=== PATIENT | female | born 1935 | race Caucasian/White ===

== ENCOUNTER 2016-09-14 15:47 | Outpatient (CLI) | payer MEDICARE ==
[2016-09-14 16:48] LABS: #Eosinphils 0.1 thou/uL (0.0-0.7); #Monocytes 0.6 thou/uL (0.11-0.59); %Basophils 0.5 % (0.0-1.0); %Monocytes 7.7 % (0.0-10.0); Anion Gap 15 mmol/L (10-20); BUN (Urea Nitrogen) 20 mg/dL (9.8-20.1); Calc. Creatinine Clearance 0 mL/min (70-130); Calcium 9.4 mg/dL (7.8-10.44); Carbon Dioxide 25 mmol/L (23-31); Chloride 98 mmol/L (98-107); Estimated GFR-MDRD 46; Hematocrit 40.1 % (36.0-47.0); Mean Platelet Volume 6.8 fL (7.4-10.4); Red Blood Cell (RBC) Count 4.17 mill/uL (4.20-5.40); White Blood Cell (WBC) Count 7.7 thou/uL (4.8-10.8)
== END 2016-09-14 15:48 | disposition home or self-care (01) ==
LOC: HPCALD 15:47
PROVIDERS: ATTEND Family Medicine
DX: R53.83 Other fatigue (principal)
CPT/HCPCS: 36415; 80048; 84443; 85025

== ENCOUNTER 2016-09-16 15:10 | Outpatient (CLI) | payer MEDICARE ==
[2016-09-16 20:26] LABS: Bilirubin Negative (Negative); Blood, Urine Negative (Negative); Glucose, Urine (Dipstick) 100 mg/dL (Negative); Ketone, Urine Negative (Negative); Nitrite Negative (Negative); Protein, Urine (Dipstick) Negative (Neg-Trace); Urobilinogen 0.2 mg/dL (0.2-1.0)
[2016-09-16 21:01] LABS: Bacteria/HPF Rare-Few HPF (None Seen); RBC/HPF 0-3 HPF (0-3); Squamous Epithelial 0-3 HPF (0-3)
== END 2016-09-16 15:11 | disposition home or self-care (01) ==
LOC: HPCALD 15:10
PROVIDERS: ATTEND Family Medicine
DX: R30.0 Dysuria (principal)
CPT/HCPCS: 81001; 87086

== ENCOUNTER 2016-11-09 14:34 | Outpatient (CLI) | payer MEDICARE ==
[2016-11-09 14:44] LABS: #Basophils 0.1 thou/uL (0.0-0.2); #Eosinphils 0.1 thou/uL (0.0-0.7); #Lymphocytes 0.9 thou/uL (1.20-3.40); #Monocytes 0.6 thou/uL (0.11-0.59); #Neutrophils 6.2 thou/uL (1.40-6.50); %Basophils 0.7 % (0.0-1.0); %Eosinophils 1.8 % (0.0-10.0); %Monocytes 7.2 % (0.0-10.0); Hematocrit 38.9 % (36.0-47.0); Mean Platelet Volume 6.5 fL (7.4-10.4); Red Blood Cell (RBC) Count 4.04 mill/uL (4.20-5.40); White Blood Cell (WBC) Count 7.8 thou/uL (4.8-10.8)
[2016-11-09 17:23] LABS: Bilirubin Negative (Negative); Blood, Urine Trace (Negative); Glucose, Urine (Dipstick) 100 mg/dL (Negative); Ketone, Urine Negative (Negative); Nitrite Negative (Negative); Protein, Urine (Dipstick) 30 mg/dL (Neg-Trace); Urobilinogen 0.2 mg/dL (0.2-1.0)
[2016-11-09 17:44] LABS: Bacteria/HPF Rare-Few HPF (None Seen); Hyaline Casts/LPF NONE SEEN LPF (0-3 Hyaline); Oval Fat Bodies/HPF None Seen HPF (None Seen); RBC/HPF 0-3 HPF (0-3); Renal Epithelial None Seen HPF (0-3); Sperm/HPF None Seen HPF (None Seen); Squamous Epithelial 0-3 HPF (0-3); Transitional Epithelial 0-3 HPF (0-3); Trichomonas/HPF None Seen HPF (None Seen); WBC/HPF 0-3 HPF (0-3); Yeast-All Forms None Seen HPF (None Seen)
== END 2016-11-09 14:35 | disposition home or self-care (01) ==
LOC: HPCALD 14:34
PROVIDERS: ATTEND Family Medicine
DX: R31.0 Gross hematuria (principal)
CPT/HCPCS: 36415; 81001; 85025; 87086

== ENCOUNTER 2017-01-05 10:06 | Outpatient (CLI) | payer MEDICARE ==
[2017-01-05 11:36] LABS: ALT (SGPT) 14 U/L (8-55); AST (SGOT) 17 U/L (5-34); Alkaline Phosphatase 78 U/L (40-150); Anion Gap 11 mmol/L (10-20); BUN (Urea Nitrogen) 19 mg/dL (9.8-20.1); Bilirubin, Total 0.9 mg/dL (0.2-1.2); Calc. Creatinine Clearance 0 mL/min (70-130); Calcium 9.4 mg/dL (7.8-10.44); Carbon Dioxide 26 mmol/L (23-31); Cardiac Risk 6.6 (Less than 4.5); Chloride 105 mmol/L (98-107); Cholesterol 159 mg/dl (< 200 Desired); Estimated GFR-MDRD 61; Globulin 2.5 g/dL (2.4-3.5); Glucose 176 mg/dL (83-110); HDL Cholesterol 24 mg/dL (>60 Neg Risk); LDL Cholesterol, Calculated 116 mg/dL; Potassium 4.3 mmol/L (3.5-5.1); Protein, Total 6.5 g/dL (6.0-8.3); Sodium 138 mmol/L (136-145); Triglycerides 95 mg/dL (Less than 150)
[2017-01-05 11:38] LABS: Hemoglobin A1c 7.1 % (4.0-6.0)
== END 2017-01-05 10:07 | disposition home or self-care (01) ==
LOC: HPCALD 10:06
PROVIDERS: ATTEND Family Medicine
DX: E78.2 Mixed hyperlipidemia (principal); E11.9 Type 2 diabetes mellitus without complications; I10 Essential (primary) hypertension
CPT/HCPCS: 36415; 80053; 80061; 83036

== ENCOUNTER 2017-02-04 11:53 | Outpatient (CLI) | payer MEDICARE ==
--- NOTE | 2017-02-04 16:58 | ULT ---
LEFT LOWER EXTREMITY VENOUS ULTRASOUND 02/04/17 Ultrasonography of the left lower extremity was performed for evaluation of swelling. No echogenic c lot was seen in the veins. All deep veins were freely compressible from groin to ankle. There was no rmal doppler response to augmentation maneuvers. IMPRESSION: No evidence of DVT. POS: HOME
== END 2017-02-04 11:54 | disposition home or self-care (01) ==
LOC: BURULT 11:53
PROVIDERS: ATTEND Family Medicine
DX: M79.89 Other specified soft tissue disorders (principal)

== ENCOUNTER 2017-02-25 14:29 | Outpatient (CLI) | payer MEDICARE | END 2017-02-25 14:30 | disposition home or self-care (01) | LOC: BURLAB 14:29 | PROVIDERS: ATTEND Internal Medicine Gastroenterology | DX: K92.1 Melena (principal) | CPT/HCPCS: 82274 ==

== ENCOUNTER 2017-03-08 09:47 | Outpatient (CLI) | payer MEDICARE ==
[2017-03-08 18:05] LABS: Creatinine, Urine 21.42 mg/dL (47-110); Microalbumin/Creat Ratio 46.7 mg/g (Less than 30)
== END 2017-03-08 09:48 | disposition home or self-care (01) ==
LOC: HPCALD 09:47
PROVIDERS: ATTEND Family Medicine
DX: E11.9 Type 2 diabetes mellitus without complications (principal)
CPT/HCPCS: 82043

== ENCOUNTER 2017-06-30 17:06 | Emergency (ER) | payer MEDICARE ==
[2017-06-30] MEDS ORDERED: Ondansetron ODT 4 MG TAB ONE (17:24)
[2017-06-30] MEDS ORDERED: Acetaminophen/Codeine 30-300mg Tablet ONE (17:24)
--- NOTE | 2017-06-30 18:37 | RAD ---
FOUR VIEWS OF THE LEFT KNEE 06/30/17 INDICATION: Fall with left knee pain. COMPARISON: None. FINDINGS: There is soft tissue swelling overlying the anterior medial aspect of the left knee suspicious for h ematoma. There is mild joint capsular distention. There is moderate osteoarthrosis of the left knee involving all major compartments but most particularly the medial femorotibial and patellofemoral co mpartments. No acute fracture or subluxation is evident. IMPRESSION: 1. No acute osseous abnormality. 2. Prominent soft tissue swelling overlying the anterior and anteromedial aspect of the left kn ee may reflect hematoma. 3. Moderate osteoarthrosis of the left knee. POS: [facility]
--- NOTE | 2017-06-30 18:41 | RAD ---
FOUR VIEWS OF THE RIGHT KNEE 06/30/17 INDICATION: Fall with right knee pain. FINDINGS: There is soft tissue swelling involving the anterior and anteromedial aspect of the right knee. Ther e is moderate joint capsular distention. There is moderate to severe osteoarthrosis of the right kne e. No acute fracture is evident. IMPRESSION: 1. Soft tissue swelling and joint capsular distention without acute osseous abnormality. 2. Moderate to severe osteoarthrosis of the right knee. POS: [facility]
== END 2017-06-30 18:23 | disposition home or self-care (01) ==
LOC: BURERS 17:06
DX: S80.02XA Contusion of left knee, initial encounter (principal); S80.01XA Contusion of right knee, initial encounter; I25.10 Atherosclerotic heart disease of native coronary artery without angina pectoris; I11.0 Hypertensive heart disease with heart failure; I50.9 Heart failure, unspecified; E78.5 Hyperlipidemia, unspecified; E11.9 Type 2 diabetes mellitus without complications; Z79.4 Long term (current) use of insulin; W01.10XA Fall on same level from slipping, tripping and stumbling with subsequent striking against unspecified object, initial encounter; Y92.513 Shop (commercial) as the place of occurrence of the external cause
CPT/HCPCS: Q0162

== ENCOUNTER 2017-09-05 10:47 | Outpatient (CLI) | payer MEDICARE ==
[2017-09-05 17:24] LABS: #Eosinphils 0.1 thou/uL (0.0-0.7); #Lymphocytes 1.2 thou/uL (1.20-3.40); #Monocytes 0.8 thou/uL (0.11-0.59); %Basophils 0.3 % (0.0-1.0); %Eosinophils 1.1 % (0.0-10.0); %Lymphocytes 14.8 % (21.0-51.0); %Monocytes 9.6 % (0.0-10.0); %Neutrophils 74.3 % (42.0-75.0); Hemoglobin 12.7 g/dL (12.0-16.0); Mean Corpuscular HGB CONC 32.9 g/dL (32.0-36.0); Mean Corpuscular Hemoglobin 32.9 pg (27.0-31.0); Mean Platelet Volume 8.5 fL (7.4-10.4); Platelet Count 148 thou/uL (130-400); RBC Distribution Width 12.7 % (11.5-14.5); Red Blood Cell (RBC) Count 3.85 mill/uL (4.20-5.40)
[2017-09-05 17:35] LABS: ALT (SGPT) 15 U/L (8-55); AST (SGOT) 23 U/L (5-34); Albumin 4.2 g/dL (3.4-4.8); Alkaline Phosphatase 76 U/L (40-150); Anion Gap 16 mmol/L (10-20); BUN (Urea Nitrogen) 18 mg/dL (9.8-20.1); Bilirubin, Total 0.9 mg/dL (0.2-1.2); Calc. Creatinine Clearance 0 mL/min (70-130); Calcium 10.4 mg/dL (7.8-10.44); Carbon Dioxide 25 mmol/L (23-31); Chloride 99 mmol/L (98-107); Estimated GFR-MDRD 43; Globulin 2.9 g/dL (2.4-3.5); Glucose 226 mg/dL (83-110); Potassium 4.5 mmol/L (3.5-5.1); Protein, Total 7.1 g/dL (6.0-8.3); Sodium 135 mmol/L (136-145)
--- NOTE | 2017-09-05 20:37 | RAD ---
CERVICAL SPINE FOUR VIEWS 09/05/17 AP, lateral and oblique views were provided. Mild anterolisthesis of C4 on C5 is probably due to some facet arthritis. Disc space narrowing is present at C5-6 with mild anterolisthesis, also due to face t arthritis. Disc space narrowing is also present at C6-C7. No fracture was seen. The C1 to dens dist ance is normal and the soft tissues are normal in thickness. IMPRESSION: Significant degenerative disc disease and facet arthritis, particularly in the lower cervical levels. POS: HOME
== END 2017-09-05 10:48 | disposition home or self-care (01) ==
LOC: BURRAD 10:47
PROVIDERS: ATTEND Family Medicine
DX: M54.2 Cervicalgia (principal); R53.83 Other fatigue; M47.812 Spondylosis without myelopathy or radiculopathy, cervical region
CPT/HCPCS: 36415; 72050; 80053; 85025

== ENCOUNTER 2017-09-21 10:09 | Outpatient (CLI) | payer MEDICARE ==
--- NOTE | 2017-09-21 20:40 | CT ---
CT OF THE CERVICAL SPINE 09/21/[address] of the cervical spine was performed following trauma. Axial slices were acquired, then kristie nal and sagittal reconstructions were done. No fracture, or dislocation was demonstrated in this patient's cervical spine. There is minimal anter olisthesis of C4 on C5 that is probably due to mild facet arthritis. Disc space narrowing is present at C5-C6 and even more so at C6-C7. The C1 to dens distance is normal and the soft tissues are normal in thickness. There is no sign of central canal stenosis at any level. Findings by level follow: C1-C2: No acute findings. C2-C3: No acute findings. Mild facet arthritis, particularly on the left. C3-C4: Prominent facet arthritis, left greater than right. No foraminal narrowing. C4-C5: Mild to moderate bilateral facet arthritis, but no foraminal narrowing C5-C6: Mild right foraminal narrowing due to osteophytes. Some facet arthritis. C6-C7: Mild bilateral foraminal narrowing due to osteophytes. C7-T1: No acute findings. T1-T2: No acute findings. T2-T3: No acute findings. The right lobe of the thyroid gland has a 1.2 cm hypoechoic nodule in it. There might be a second nod ule more towards the isthmus. I do not see a well defined left lobe. This needs further workup with a n elective thyroid ultrasound. The visible portions of the lung apices were clear. IMPRESSION: 1. No acute traumatic findings. 2. Degenerative changes throughout as described above, with more prominent discogenic changes at C6 through C7. 3. At least one right thyroid nodule that needs elective followup. Code T POS: HOME
== END 2017-09-21 10:10 | disposition home or self-care (01) ==
LOC: BURCT 10:09
PROVIDERS: ATTEND Family Medicine
DX: M54.2 Cervicalgia (principal); M47.892 Other spondylosis, cervical region; E04.1 Nontoxic single thyroid nodule
CPT/HCPCS: 72125

== ENCOUNTER 2017-10-23 10:28 | Emergency (ER) | payer MEDICARE ==
[2017-10-23 11:16] LABS: #Basophils 0.1 thou/uL (0.0-0.2); #Lymphocytes 0.7 thou/uL (1.20-3.40); #Neutrophils 6.8 thou/uL (1.40-6.50); %Basophils 0.7 % (0.0-1.0); %Eosinophils 0.1 % (0.0-10.0); %Lymphocytes 7.7 % (21.0-51.0); %Monocytes 11.9 % (0.0-10.0); %Neutrophils 79.7 % (42.0-75.0); Hemoglobin 12.7 g/dL (12.0-16.0); Mean Corpuscular HGB CONC 33.5 g/dL (32.0-36.0); Mean Corpuscular Hemoglobin 30.8 pg (27.0-31.0); Mean Corpuscular Volume 91.9 fl (81.0-99.0); Mean Platelet Volume 7.9 fL (7.4-10.4); PLT Morphology Comment PATIENT HISTORY OF LOW PLATELET COUNTS; Platelet Count 109 thou/uL (130-400); RBC Distribution Width 13.1 % (11.5-14.5); Red Blood Cell (RBC) Count 4.14 mill/uL (4.20-5.40); White Blood Cell (WBC) Count 8.5 thou/uL (4.8-10.8)
[2017-10-23 11:18] LABS: INR-International Normal Ratio 1.5; PTT 29.1 SEC (22.9-36.1); Prothrombin Time 18.5 SEC (12.0-14.7)
[2017-10-23 11:24] LABS: AST (SGOT) 33 U/L (5-34); Albumin 4.1 g/dL (3.4-4.8); Anion Gap 15 mmol/L (10-20); Calc. Creatinine Clearance 0 mL/min (70-130); Carbon Dioxide 25 mmol/L (23-31); Chloride 96 mmol/L (98-107); Estimated GFR-MDRD 57; Glucose 223 mg/dL (83-110); Potassium 4.3 mmol/L (3.5-5.1); Protein, Total 7.3 g/dL (6.0-8.3); Sodium 132 mmol/L (136-145)
[2017-10-23 11:27] LABS: MDiff Complete? YES
[2017-10-23 11:27] LABS: CKMB 1.5 ng/mL (0-6.6); Troponin I 0.037 ng/mL (< 0.028)
[2017-10-23 11:29] LABS: Digoxin 0.76 ng/mL (0.8-2.0)
[2017-10-23 12:06] LABS: Bilirubin Small (Negative); Blood, Urine Negative (Negative); Clarity Clear (Clear); Glucose, Urine (Dipstick) 100 mg/dL (Negative); Leukocyte Negative (Negative); Nitrite Negative (Negative); Protein, Urine (Dipstick) 100 mg/dL (Neg-Trace); Specific Gravity, Urine 1.015 (1.005-1.030)
[2017-10-23] MEDS ORDERED: Pantoprazole 40 MG VIAL ONE (12:11)
[2017-10-23 12:14] LABS: Bacteria/HPF Rare-Few HPF (None Seen); Crystals/HPF None Seen HPF (Negative); Hyaline Casts/LPF NONE SEEN LPF (0-3 Hyaline); Other Casts/LPF None Seen LPF (0-3 Hyaline); Oval Fat Bodies/HPF None Seen HPF (None Seen); RBC/HPF 0-3 HPF (0-3); Renal Epithelial None Seen HPF (0-3); Sperm/HPF None Seen HPF (None Seen); Squamous Epithelial None Seen HPF (0-3); Transitional Epithelial NONE SEEN HPF (0-3); Trichomonas/HPF None Seen HPF (None Seen); WBC/HPF 0-3 HPF (0-3); Yeast-All Forms None Seen HPF (None Seen)
--- NOTE | 2017-10-23 17:28 | RAD ---
PORTABLE CHEST; Date: 10/23/17 An AP portable film at 1031 hours is compared with the 11/19/16 study. FINDINGS: The heart is nonenlarged. There is some prominence of the vasculature, though I cannot tell if it is due to true congestion or lack of a deep breath on this film. There are no large effusions. An AICD i s in place as before. A focal lobar consolidation was not seen. There are no large effusions. IMPRESSION: Vascular prominence. Congestion versus artifactual due to a partially expiratory film. POS: HOME
== END 2017-10-23 13:10 | disposition short-term general hospital (02) ==
LOC: BURERS 10:28
DX: R04.0 Epistaxis (principal); J20.9 Acute bronchitis, unspecified; R79.89 Other specified abnormal findings of blood chemistry; I25.10 Atherosclerotic heart disease of native coronary artery without angina pectoris; E11.9 Type 2 diabetes mellitus without complications; I11.0 Hypertensive heart disease with heart failure; I50.9 Heart failure, unspecified; E78.5 Hyperlipidemia, unspecified; Z85.3 Personal history of malignant neoplasm of breast; Z79.01 Long term (current) use of anticoagulants; Z79.4 Long term (current) use of insulin; Z79.82 Long term (current) use of aspirin; Z79.899 Other long term (current) drug therapy; Z79.52 Long term (current) use of systemic steroids
CPT/HCPCS: 51701; 71045; 80051; 80162; 81003; 81015; 82040; 82310; 82553; 82565; 82947; 83605; 84155; 84450; 84484; 85025; 85610; 85730; 87040; 93005; 94760; 96361; 96374; A4353; C9113

== ENCOUNTER 2018-03-23 11:11 | Emergency (ER) | payer MEDICARE ==
[2018-03-23] MEDS ORDERED: cefTRIAXone\\ROCEPHIN 1 GM VIAL ONE (11:38)
[2018-03-23] MEDS ORDERED: Lidocaine 1% 20 ML MDV ONE (11:40)
== END 2018-03-23 11:58 | disposition home or self-care (01) ==
LOC: BURERS 11:11
DX: L03.116 Cellulitis of left lower limb (principal); E11.9 Type 2 diabetes mellitus without complications; E78.5 Hyperlipidemia, unspecified; I10 Essential (primary) hypertension; Z79.4 Long term (current) use of insulin; Z79.899 Other long term (current) drug therapy; Z79.891 Long term (current) use of opiate analgesic
CPT/HCPCS: 96372; J0696; J2001

== ENCOUNTER 2018-04-24 10:15 | Outpatient (CLI) | payer MEDICARE ==
--- NOTE | 2018-04-24 13:56 | RAD ---
LEFT FOOT THREE VIEWS: Date: 04-24-18 FINDINGS: Exam in three views show a linear opaque foreign body entering the plantar aspect of the foot and hav ing its tip near the junction of the cuneiforms and first metatarsal. The bones at the base of the se cond and third metatarsals shows some cystic changes in them, as there are some in the first and seco nd cuneiforms. These changes were not present on a 10-01-11 study. I do not know if bony infection is a possibility. I would recommend referring the patient to an orthopedic surgeon for both removal of th e foreign body (which resembles a wire) and for further study of the tarsals. There are also cystic o r erosive changes between the navicular and the cuneiforms. IMPRESSION: 1. Opaque foreign body (resembles a wire) in the plantar aspect of the foot as described. 2. Cystic or erosive changes between the cuneiforms and metatarsal bases as well as between the navic ular and cuneiforms. Further workup is required. Orthopedic referral recommended. Code T POS: HOME
== END 2018-04-24 10:16 | disposition home or self-care (01) ==
LOC: BURRAD 10:15
PROVIDERS: ATTEND Family Medicine
DX: S91.302A Unspecified open wound, left foot, initial encounter (principal); S90.852A Superficial foreign body, left foot, initial encounter

== ENCOUNTER 2018-04-25 09:46 | Emergency (ER) | payer MEDICARE ==
[2018-04-25 10:19] LABS: #Basophils 0.1 thou/uL (0.0-0.2); #Eosinphils 0.1 thou/uL (0.0-0.7); #Lymphocytes 0.8 thou/uL (1.20-3.40); #Monocytes 0.5 thou/uL (0.11-0.59); #Neutrophils 3.9 thou/uL (1.40-6.50); %Basophils 1.1 % (0.0-1.0); %Eosinophils 2.4 % (0.0-10.0); %Lymphocytes 14.8 % (21.0-51.0); %Monocytes 8.9 % (0.0-10.0); %Neutrophils 72.9 % (42.0-75.0); Hemoglobin 11.1 g/dL (12.0-16.0); Mean Corpuscular Hemoglobin 29.2 pg (27.0-31.0); Mean Corpuscular Volume 81.1 fL (78.0-98.0); Mean Platelet Volume 4.7 fL (7.4-10.4); Platelet Count 165 thou/uL (130-400); RBC Distribution Width 12.9 % (11.5-14.5); White Blood Cell (WBC) Count 5.4 thou/uL (4.8-10.8)
[2018-04-25 10:31] LABS: Anion Gap 16 mmol/L (10-20); BUN (Urea Nitrogen) 16 mg/dL (9.8-20.1); Calc. Creatinine Clearance 0 mL/min (70-130); Calcium 9.9 mg/dL (7.8-10.44); Carbon Dioxide 24 mmol/L (23-31); Chloride 102 mmol/L (98-107); Estimated GFR-MDRD 56; Glucose 181 mg/dL (83-110); Potassium 4.5 mmol/L (3.5-5.1); Sodium 137 mmol/L (136-145)
== END 2018-04-25 11:00 | disposition home or self-care (01) ==
LOC: BURERS 09:46
DX: K64.4 Residual hemorrhoidal skin tags (principal); I25.10 Atherosclerotic heart disease of native coronary artery without angina pectoris; E11.9 Type 2 diabetes mellitus without complications; I11.0 Hypertensive heart disease with heart failure; I50.9 Heart failure, unspecified; E78.5 Hyperlipidemia, unspecified; Z79.4 Long term (current) use of insulin; Z79.899 Other long term (current) drug therapy; Z79.891 Long term (current) use of opiate analgesic
CPT/HCPCS: 80048; 85025; 99283

== ENCOUNTER 2018-04-27 11:02 | Outpatient (CLI) | payer MEDICARE ==
--- NOTE | 2018-04-28 17:48 | CT ---
CT OF THE LEFT FOOT 04/27/[address] of the left foot was done following foreign body removal and in response to abnormal radiog raphs. Axial slices were acquired, then coronal and sagittal reconstructions were done. There are an extensive number of erosions in the bones of this patient's foot. The majority of the er osions are in the tarsal bones, especially the cuneiforms, particularly the second cuneiform and also the base of the second metatarsal. There are also a few erosions seen elsewhere around the ankle mohit nt, other tarsal bones and in the first metatarsal head. The joint between the second metatarsal base and middle cuneiform is particularly affected. There is fragmentation of bone here. The findings are fairly uniform throughout the foot in that there is no area that resembles acute bony destruction wetzel ch as one would see with osteomyelitis. There is soft tissue swelling in the foot. No acute fractures were demonstrated. No opaque foreign bodies remain in the soft tissues. IMPRESSION: 1. Extensive erosive changes throughout bones of the foot, particularly in the tarsometatarsal j unction region. The preliminary differentials coming to mind causing such erosions would be systemic diseases such as rheumatoid arthritis or gout. Pseudogout, erosive osteoarthritis, and other inflamma tory arthropathies would be considerations as well. Rheumatological referral might be needed for prop er diagnosis. 2. No definite findings of osteomyelitis at the moment. If swelling and pain were to continue, f urther studies might be needed to rule this in or out. POS: HOME
== END 2018-04-27 11:03 | disposition home or self-care (01) ==
LOC: BURCT 11:02
PROVIDERS: ATTEND Family Medicine
DX: M79.672 Pain in left foot (principal)

== ENCOUNTER 2018-06-28 12:21 | Outpatient (CLI) | payer MEDICARE ==
[2018-06-28 12:52] LABS: #Eosinphils 0.2 thou/uL (0.0-0.7); #Lymphocytes 0.9 thou/uL (1.20-3.40); #Monocytes 0.6 thou/uL (0.11-0.59); #Neutrophils 3.2 thou/uL (1.40-6.50); %Basophils 0.8 % (0.0-1.0); %Eosinophils 3.1 % (0.0-10.0); %Monocytes 12.2 % (0.0-10.0); %Neutrophils 64.8 % (42.0-75.0); Hemoglobin 11.5 g/dL (12.0-16.0); Mean Corpuscular HGB CONC 31.4 g/dL (32.0-36.0); Mean Corpuscular Hemoglobin 26.6 pg (27.0-31.0); Mean Corpuscular Volume 84.7 fL (78.0-98.0); Platelet Count 116 thou/uL (130-400); Red Blood Cell (RBC) Count 4.32 mill/uL (4.20-5.40)
[2018-06-28 13:04] LABS: MDiff Complete? YES; Manual Diff?? NO
[2018-06-28 13:05] LABS: ALT (SGPT) 27 U/L (8-55); AST (SGOT) 30 U/L (5-34); Alkaline Phosphatase 91 U/L (40-150); Anion Gap 13 mmol/L (10-20); BUN (Urea Nitrogen) 16 mg/dL (9.8-20.1); Bilirubin, Total 1.1 mg/dL (0.2-1.2); Calc. Creatinine Clearance 0 mL/min (70-130); Calcium 9.9 mg/dL (7.8-10.44); Carbon Dioxide 28 mmol/L (23-31); Chloride 103 mmol/L (98-107); Estimated GFR-MDRD 49; Glucose 159 mg/dL (83-110); Potassium 4.2 mmol/L (3.5-5.1); Sodium 140 mmol/L (136-145)
[2018-06-28 13:07] LABS: Bacteria/HPF None Seen HPF (None Seen); Bilirubin Negative (Negative); Blood, Urine Negative (Negative); Clarity Clear (Clear); Crystals/HPF None Seen HPF (Negative); Glucose, Urine (Dipstick) Negative (Negative); Hyaline Casts/LPF NONE SEEN LPF (0-3 Hyaline); Leukocyte Small (Negative); Nitrite Negative (Negative); Other Casts/LPF None Seen LPF (0-3 Hyaline); Oval Fat Bodies/HPF None Seen HPF (None Seen); Protein, Urine (Dipstick) Negative (Neg-Trace); RBC/HPF 0-3 HPF (0-3); Renal Epithelial None Seen HPF (0-3); Specific Gravity, Urine 1.015 (1.005-1.030); Sperm/HPF None Seen HPF (None Seen); Squamous Epithelial 0-3 HPF (0-3); Transitional Epithelial NONE SEEN HPF (0-3); Trichomonas/HPF None Seen HPF (None Seen); Urobilinogen 0.2 mg/dL (0.2-1.0); WBC/HPF 0-3 HPF (0-3); Yeast-All Forms None Seen HPF (None Seen)
--- NOTE | 2018-06-29 07:36 | RAD ---
CHEST 2 VIEWS: Date: 06/28/18 HISTORY: M53.81, malaise. COMPARISON: Chest radiograph dated 05/24/18. FINDINGS: Heart size is enlarged. Small left effusion. Left basilar opacity. No pneumothorax. Mild pulmonary venous congestion. IMPRESSION: Cardiomegaly with mild pulmonary venous congestion and small left effusion. Findings can be seen with early decompensated congestive heart failure. Dr. Kwan notified of findings at 1307 hours. CODE CR.
== END 2018-06-28 12:22 | disposition home or self-care (01) ==
LOC: BURRAD 12:21
PROVIDERS: ATTEND Family Medicine
DX: R53.81 Other malaise (principal); R06.02 Shortness of breath; I51.7 Cardiomegaly; I87.8 Other specified disorders of veins; J90 Pleural effusion, not elsewhere classified
CPT/HCPCS: 36415; 71046; 80053; 81001; 83880; 85025; 87086

== ENCOUNTER 2018-08-24 13:58 | Outpatient (CLI) | payer MEDICARE ==
--- NOTE | 2018-08-24 14:39 | RAD ---
RIGHT FOOT RADIOGRAPHS THREE VIEWS: Date: 08-24-18 Provided Clinical History: Foot pain. FINDINGS: Comparison 04-24-18. Interval removal of the previously described foreign body at the plantar aspect o f the midfoot/forefoot junction. Prominent periarticular subcortical cyst like change seen about the Lisfranc joint. Prominent joint space narrowing at the first MTP joint. Alignment remains anatomic. J oint spaces appear preserved otherwise. There is plantar displacement of the navicular with respect t o the talus. 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 POS: [facility]
== END 2018-08-24 13:59 | disposition home or self-care (01) ==
LOC: BURRAD 13:58
PROVIDERS: ATTEND Podiatrist Foot & Ankle Surgery
DX: L97.522 Non-pressure chronic ulcer of other part of left foot with fat layer exposed (principal)

== ENCOUNTER 2018-11-01 09:50 | Emergency (ER) | payer MEDICARE | END 2018-11-01 10:09 | disposition home or self-care (01) | LOC: BURERS 09:50 | DX: L03.032 Cellulitis of left toe (principal); I11.0 Hypertensive heart disease with heart failure; I50.9 Heart failure, unspecified; E11.9 Type 2 diabetes mellitus without complications; I25.10 Atherosclerotic heart disease of native coronary artery without angina pectoris | CPT/HCPCS: 99283 ==

== ENCOUNTER 2019-06-21 15:09 | Outpatient (CLI) | payer MEDICARE ==
--- NOTE | 2019-06-21 15:34 | RAD ---
Exam:Left foot 3 views HISTORY: Neuropathic pain COMPARISON: 08/24/2018 FINDINGS: Stable periarticular subcortical cystlike changes along the Lisfranc joint. Stable prominen t joint space narrowing in the first MTP joint. Stable alignment. Plantar displacement of the navicular with respect to the talus. Acute fracture is not appreciated. Chronic changes involving the fifth toe. IMPRESSION: 1. No significant interval change. 2. 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 Transcribed Date/Time: 06/21/2019 4:36 PM
== END 2019-06-21 15:10 | disposition home or self-care (01) ==
LOC: BURRAD 15:09
PROVIDERS: ATTEND Family Medicine
DX: M79.2 Neuralgia and neuritis, unspecified (principal)

== ENCOUNTER 2019-10-04 13:40 | Emergency (ER) | payer MEDICARE ==
[2019-10-04] MEDS ORDERED: Lidocaine 1% w/Epinephrine 1:100K 30 ML VIAL ONE (14:09)
--- NOTE | 2019-10-04 16:26 | CT ---
CT OF THE CERVICAL SPINE 10/04/[address] of the cervical spine was done following trauma. Comparison is made with the prior study jeanette gruber 09/21/17. There have been substantial changes since the last scan. There is a fracture present through the vert ebral body of C2 on the left side and extending centrally. It extends into the base of the odontoid p rocess. There may be a small fracture in the anterior arch of C1 just to the left of midline. The lat eral masses of C1 are shifted laterally towards the right with respect to C2, therefore, the odontoid is off center with respect to the ring of C1. The C1 to odontoid distance is normal. The entire ring of C1 seems to sit slightly lower on the odontoid than it did on the 2018 study. Elsewhere, there is minor anterior subluxation of C4 on C5 that appears to be due to facet disease. T here is disc space narrowing at C5-6 and C6-7. Degenerative changes are present throughout the cervic al spine, particularly in the facet joints bilaterally. There is some mild bilateral foraminal narrow ing at C5-6 and C6-7. The upper thoracic vertebrae on the scan appeared intact. The patient's thyroid gland was included on the study and there are several hypoechoic areas througho ut the right lobe. These were mentioned on the 2018 study and are roughly similar. Other modalities w ould be needed to better assess this. IMPRESSION: 1. Fracture through the vertebral body of C2 going from the left towards center and extending in to the base of the odontoid process. 2. Lateral masses of C1 shifted to the right with respect to C2. There also may be a small fract ure of the anterior arch of C1 to the left of midline. 3. The above are new findings when compared with the [address] CT. I cannot tell if they are truly ac [place] or if they have occurred since the last scan, but prior to today. In any case, the alignment at t he C1-2 level is problematic and needs to be addressed. 4. Degenerative changes throughout the spine as listed above. 5. Thyroid cysts or masses predominantly in the right lobe. This finding was present previously on the 2018 scan. It probably is not actionable at this time. Initial report called to Elaine in ER at 1413 with follow-up discussion with Dr. Washington at 1425 on 10/04. POS: HOME
--- NOTE | 2019-10-04 16:28 | CT ---
CT OF THE BRAIN WITHOUT CONTRAST: 10/04/[address] of the brain was performed following trauma. No intracranial bleeding or extra-axial hemato ma was seen. Atrophy and some chronic ischemic changes are noted. 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 There may be a tiny one in the right posterior frontal/anterior parietal region as well. The ventricles are normal in size for age and atrophy. The skull showed no fractures. The visi ble paranasal sinuses are clear. See CT cervical spine report for findings at the C1-2 level. IMPRESSION: Chronic changes but no acute intracranial finding. Findings called to Elaine in ER at 1413 on 10/04/19. POS: HOME
== END 2019-10-04 15:05 | disposition short-term general hospital (02) ==
LOC: BURERS 13:40
DX: S12.100A Unspecified displaced fracture of second cervical vertebra, initial encounter for closed fracture (principal); S12.090A Other displaced fracture of first cervical vertebra, initial encounter for closed fracture; S01.81XA Laceration without foreign body of other part of head, initial encounter; S80.212A Abrasion, left knee, initial encounter; S70.312A Abrasion, left thigh, initial encounter; I11.0 Hypertensive heart disease with heart failure; I50.9 Heart failure, unspecified; E11.9 Type 2 diabetes mellitus without complications; E78.5 Hyperlipidemia, unspecified; I25.10 Atherosclerotic heart disease of native coronary artery without angina pectoris; Z79.4 Long term (current) use of insulin; Z79.899 Other long term (current) drug therapy; W18.09XA Striking against other object with subsequent fall, initial encounter
CPT/HCPCS: 12013; 70450; 72125; J2001; L0120

== ENCOUNTER 2019-10-15 14:41 | Emergency (ER) | payer MEDICARE | END 2019-10-15 15:08 | disposition home or self-care (01) | LOC: BURERS 14:41 | DX: L03.115 Cellulitis of right lower limb (principal); I11.0 Hypertensive heart disease with heart failure; I50.9 Heart failure, unspecified; E11.9 Type 2 diabetes mellitus without complications; E78.5 Hyperlipidemia, unspecified; I25.10 Atherosclerotic heart disease of native coronary artery without angina pectoris; Z79.4 Long term (current) use of insulin; Z79.01 Long term (current) use of anticoagulants; Z79.82 Long term (current) use of aspirin; Z79.899 Other long term (current) drug therapy | CPT/HCPCS: 99283 ==

== ENCOUNTER 2020-12-30 12:48 | Emergency (ER) | payer MEDICARE ==
[2020-12-30] MEDS ORDERED: Lidocaine 2% PF 5 ML VIAL ONE (13:22)
[2020-12-30] MEDS ORDERED: Bacitracin 1 PK ONE (13:22)
[2020-12-30] MEDS ORDERED: TETANUS, DIPHTHERIA TOX,ADULT (TDVAX) 0.5 ML VIAL IM ONE (13:50)
== END 2020-12-30 14:02 | disposition home or self-care (01) ==
LOC: BURERS 12:48
DX: S61.213A Laceration without foreign body of left middle finger without damage to nail, initial encounter (principal); I25.10 Atherosclerotic heart disease of native coronary artery without angina pectoris; I11.0 Hypertensive heart disease with heart failure; I50.9 Heart failure, unspecified; E11.9 Type 2 diabetes mellitus without complications; E78.5 Hyperlipidemia, unspecified; Z79.4 Long term (current) use of insulin; Z79.899 Other long term (current) drug therapy; Z23 Encounter for immunization; W26.0XXA Contact with knife, initial encounter; Y92.009 Unspecified place in unspecified non-institutional (private) residence as the place of occurrence of the external cause
CPT/HCPCS: 12001; 90471; 90714; J2001

== ENCOUNTER 2021-03-20 23:31 | Outpatient (CLI) | payer MEDICARE ==
[2021-03-21 00:21] LABS: SARS-CoV-2 NAA Rapid Test Not Detected (NotDetected)
== END 2021-03-20 23:32 | disposition home or self-care (01) ==
LOC: BURLAB 23:31 → BURMANOR 23:32
PROVIDERS: ATTEND Family Medicine
DX: R06.00 Dyspnea, unspecified (principal); Z20.822 Contact with and (suspected) exposure to COVID-19
CPT/HCPCS: U0002